=== PATIENT | female | born 1955 | race Asian ===

== ENCOUNTER 2020-10-10 07:09 | Inpatient (IN) | payer MEDICAID ==
[2020-10-07 11:49] LABS: BASOPHILS % (AUTO) 0.5 % (0-1); EOSINOPHILS % (AUTO) 0 % (0-6); LYMPHOCYTES # (AUTO) 1.4 X10'3 (1.1-4.8); LYMPHOCYTES % (AUTO) 23.7 % (21-51); MEAN CORPUSCULAR HEMOGLOBIN 30.3 PG (27.0-31.0); MEAN CORPUSCULAR HGB CONC 33.4 g/dL (33.0-36.5); MEAN CORPUSCULAR VOLUME 90.8 FL (78-98); MEAN PLATELET VOLUME 8.1 FL (7.4-10.4); MONOCYTES # (AUTO) 0.4 X10'3 (0-0.9); MONOCYTES % (AUTO) 6.1 % (2-12); NEUTROPHILS # (AUTO) 4.1 X10'3 (1.8-7.7); NEUTROPHILS % (AUTO) 69.7 % (42-75); PRE OP HEMATOCRIT 40.2 % (35.0-45.0); PRE OP HEMOGLOBIN 13.4 g/dL (12.0-16.0); PRE OP PLATELET COUNT 202 X10'3 (140-440); RED BLOOD COUNT 4.42 X10'6 (4.20-5.60); RED CELL DISTRIBUTION WIDTH 13.3 % (11.5-14.5)
[2020-10-07 12:03] LABS: PRE OP PROTIME 10.7 SECONDS (9.0-12.0)
[2020-10-07 12:09] LABS: ALBUMIN 4.1 G/DL (3.4-5.0); ALBUMIN/GLOBULIN RATIO 1.2 (1.1-1.5); ALKALINE PHOSPHATASE 78 IU/L (46-116); BLOOD UREA NITROGEN 10 MG/DL (7-18); BUN/CREATININE RATIO 14.7 (6.6-38.0); CALCIUM 8.8 MG/DL (8.5-10.1); CHLORIDE 107 MMOL/L (99-107); CREATININE 0.68 MG/DL (0.40-0.90); PRE OP ALT 26 U/L (30-65); PRE OP ANION GAP 9 (8-16); PRE OP AST 23 U/L (10-37); PRE OP BILIRUB, TOTAL 0.6 MG/DL (0.0-1.0); PRE OP GLUCOSE 88 MG/DL (70-104); PRE OP POTASSIUM 4.1 MMOL/L (3.4-5.1); PRE OP SODIUM 146 MMOL/L (135-145); TOTAL CARBON DIOXIDE 29.6 MMOL/L (24-32); TOTAL PROTEIN 7.4 G/DL (6.4-8.2); eGFR 87 ML/MIN
[~2020-10-10] VITALS: Ht 144.8 cm; Wt 45.6 kg
[2020-10-10] VITALS (21 sets, daily range): BP systolic 97–170; BP diastolic 49–88
[~2020-10-10 07:09] MED LIST: CHOL50004 PO; DULO60CA65 PO; QUET-1 PO; cefazolin/dext.iso 2gm/100ml IV ONE; famotidine 20mg tablet PO ONE; ringers solution, lacted 1,000 ML IV SCH
[2020-10-10] MEDS ORDERED: midazolam 1 mg/ML 2ml injection ONE ×2 (09:41→13:15)
[2020-10-10] MEDS ORDERED: fentaNYL/PF 50MCG/1 ML 2ML syringe ONE ×2 (09:41→13:00)
[2020-10-10] MEDS ORDERED: LIDOcaine 2% (20mg/ml) 5ml vial ONE (09:42)
[2020-10-10] MEDS ORDERED: propofol inj 20 ML IV ONE (09:42)
[2020-10-10] MEDS ORDERED: rocuronium 10mg/ml inj IV ONE ×2 (09:43→12:44)
[2020-10-10] MEDS ORDERED: ondansetron/PF 4mg/2ml inj ONE (09:44)
[2020-10-10] MEDS ORDERED: dexamethasone sod phosphate 4mg/ml inj. ONE (09:44)
[2020-10-10] MEDS ORDERED: LIDOcaine 1% (10mg/ml) 2ml vial ONE (09:50)
[2020-10-10] MEDS ORDERED: hydrALAZINE 20mg/ml inj. IV PRN (09:50)
[2020-10-10] MEDS ORDERED: morphine 2 MG/ML inj. syringe IV PRN (09:50)
[2020-10-10] MEDS ORDERED: ringers solution, lacted 1,000 ML IV SCH (09:50)
[2020-10-10] MEDS ORDERED: ondansetron/PF 4mg/2ml inj IV PRN ×2 (09:50→13:10)
[2020-10-10] MEDS ORDERED: labetalol 20mg/4ml (5mg/ml) syringe IV PRN (09:50)
[2020-10-10] MEDS ORDERED: fentaNYL/PF 50MCG/1 ML 2ML syringe IV PRN (09:50)
[2020-10-10] MEDS ORDERED: neostigmine methylsulfate 1 MG/ML 10ml vial ONE (10:50)
[2020-10-10] MEDS ORDERED: sevoflurane 250ml liquid IH ONE (10:50)
[2020-10-10] MEDS ORDERED: glycopyrrolate 0.2mg/ml inj ONE (10:50)
[2020-10-10] MEDS ORDERED: ePHEDrine 50MG/ML INJ. ONE (12:44)
[2020-10-10] MEDS ORDERED: sugammadex 200mg/2ml injection IV ONE (12:46)
[2020-10-10] MEDS ORDERED: BUPIVAcaine/PF 2.5mg/ml (0.25%) 10ml vial ONE (12:55)
[2020-10-10] MEDS ORDERED: naloxone 0.4 mg/ml inj ONE (13:08)
--- NOTE | 2020-10-10 13:20 | NUR ---
PT ARRIVED FROM OR VIA BED, MOANING AND THRASHING-PAINFUL, NOT FULLY AWAKE, LEFT GROIN CVL-BLEEDING AT SITE D/T PT MOVING SO MUCH-PRESSURE APPLIED, TRYING TO KEEP PT SAFE AND GET HER COMFORTABLE WITH PAIN MEDS, ART LINE TO RIGHT WRIST-INTACT, RIGHT CHEST DRSG-CDI, F/C IN PLACE-DRAINING YELLOW URINE, PIV TO LEFT HAND-D/CD CANNULA INTACT, PT SPEAKS ONLY MIEN-DIFFICULT TO COMMUNICATE WITH. VSS, O2 SAT 100% ON 10ML MASK.
[2020-10-10] MEDS: fentaNYL/PF 50MCG/1 ML 2ML syringe IV PRN ×3 (13:33→14:14)
[2020-10-10] MEDS: morphine 4 MG/ML inj SYRINge IV PRN ×3 (13:44→18:05)
--- NOTE | 2020-10-10 14:00 | NUR ---
PT STILL UNCOMFORTABLE HAS BEEN GIVEN MULTIPLE PAIN MEDS TO ASSIST WITH COMFORT, PT CRYING, MOANING, INTERMITTENT THRASHING-DIFFICULT TO KEEP LEFT LEG DOWN TO PROTECT GROIN SITE. SPOKE WITH DR. SMITH-ASHKAN TO CONTINUE PAIN MEDS TO GET PT COMFORTABLE. CHEST XRAY DONE PER DR. SILVA ORDER, PT NOTED TO HAVE SWELLING TO RIGHT SIDE OF NECK AFTER ATTEMPTED LINE PLACEMENT-AREA SOFT, SWELLING MARKED, DR PEÑA ASSESSED AREA AND XRAY REVIEWED-NO TRACHEAL DEVIATION NOTED, PT SATURATION 99% ON 3L RTS, NO SN/SX OF DIFFICULTY BREATHING
--- NOTE | 2020-10-10 15:45 | NUR ---
PT GIVEN 1 LAST DOSE OF FENTANYL FOR PAIN AT CHEST INCISION, ART LINE DC/D, GROIN CVL REDRESSED PER STERILE TECHNIQUE, NECK SWELLING APPEARS BETTER, STILL NO SN/SX OF RESP DISTRESS, 100% ON 2LTRS O2, CHEST DRSG-CDI.
--- NOTE | 2020-10-10 16:20 | NUR ---
PT VSS, PAIN BETTER CONTROLLED NOW, PT CALM AND RESTING QUIETLY, LEFT GROIN CVL-DRSG CDI, LR RUNNING VIA 1 LUMEN, RIGHT CHEST DSRG-CDI, F/C-DRAINING WELL, SPOKE WITH SISTER WHO WAS ABLE TO TRANSLATE TO PT AND REGARDING PT CURRENT CARE. REPORT CALLED TO JOSTIN RN-ALL QUESTIONS ANSWERED, TAKEN WITH BELONGINGS TO ROOM 3026B, HOOKED TO MONITORS, PRIMARY RN AT BEDSIDE TO RECEIVE PT.
[2020-10-10] MEDS: potassium CL 20mEq in D5-1/2NS 1,000 ML IV SCH ×2 (16:57→21:12)
[2020-10-10] MEDS: ceFAZolin inj. 1,000 MG in dextrose 5%-water 50ml 50 ML IV SCH (17:27)
--- NOTE | 2020-10-10 18:23 | NUR ---
Problems reprioritized. Patient report given, questions answered & plan of care reviewed with rudy LOCKE.
--- NOTE | 2020-10-10 18:23 | NUR ---
Patient in room PCU 3026. I have received report from JOSTIN LOCKE and had the opportunity to ask questions and assume patient care.
--- NOTE | 2020-10-10 18:44 | NUR ---
Problems reprioritized. Patient report given, questions answered & plan of care reviewed with Heidi LOCKE.
[2020-10-10] MEDS: HYDROcodone/acetaminophen 5mg/325mg tablet PO PRN (21:09)
[2020-10-10] MEDS: quetiapine 100mg tablet PO SCH (21:11)
[2020-10-11] MEDS: ceFAZolin inj. 1,000 MG in dextrose 5%-water 50ml 50 ML IV SCH ×2 (00:24→08:05)
[2020-10-11 02:00] VITALS: BP 91/46
[2020-10-11 06:00] VITALS: BP 103/60
--- NOTE | 2020-10-11 06:15 | NUR ---
Patient in room PCU 3026. I have received report from Heidi LOCKE and had the opportunity to ask questions and assume patient care.
[2020-10-11 06:19] LABS: BASOPHILS % (AUTO) 0.1 % (0-1); EOSINOPHILS % (AUTO) 0 % (0-6); HEMATOCRIT 31.4 % (35.0-45.0); HEMOGLOBIN 10.2 g/dl (12.0-16.0); LYMPHOCYTES # (AUTO) 1.2 X10'3 (1.1-4.8); LYMPHOCYTES % (AUTO) 7.3 % (21-51); MEAN CORPUSCULAR HEMOGLOBIN 29.9 PG (27.0-31.0); MEAN CORPUSCULAR HGB CONC 32.6 g/dL (33.0-36.5); MEAN CORPUSCULAR VOLUME 91.7 FL (78-98); MEAN PLATELET VOLUME 8.5 FL (7.4-10.4); MONOCYTES # (AUTO) 1.5 X10'3 (0-0.9); MONOCYTES % (AUTO) 9.5 % (2-12); NEUTROPHILS # (AUTO) 13.2 X10'3 (1.8-7.7); NEUTROPHILS % (AUTO) 83.1 % (42-75); PLATELET COUNT 165 X10'3 (140-440); RED BLOOD COUNT 3.42 X10'6 (4.20-5.60); RED CELL DISTRIBUTION WIDTH 13.5 % (11.5-14.5); WHITE BLOOD COUNT 15.9 X10'3 (4.5-11.0)
[2020-10-11 06:36] LABS: ALANINE AMINOTRANSFERASE 19 U/L (12-78); ALBUMIN 3.1 G/DL (3.4-5.0); ALBUMIN/GLOBULIN RATIO 1.1 (1.1-1.5); ALKALINE PHOSPHATASE 61 IU/L (46-116); ANION GAP 9 (8-16); ASPARTATE AMINO TRANSFERASE 29 U/L (10-37); BILIRUBIN,TOTAL 0.4 MG/DL (0.1-1.0); BLOOD UREA NITROGEN 10 MG/DL (7-18); BUN/CREATININE RATIO 12.5 (6.6-38.0); CALCIUM 7.8 MG/DL (8.5-10.1); CHLORIDE 107 MMOL/L (99-107); GLUCOSE 147 MG/DL (70-104); POTASSIUM 4.1 MMOL/L (3.5-5.1); SODIUM 143 MMOL/L (135-145); TOTAL CARBON DIOXIDE 27.3 MMOL/L (24-32); eGFR 72 ML/MIN
[2020-10-11] MEDS: potassium CL 20mEq in D5-1/2NS 1,000 ML IV SCH (06:58)
--- NOTE | 2020-10-11 06:59 | NUR ---
Problems reprioritized. Patient report given, questions answered & plan of care reviewed with JOSTIN LOCKE.
[2020-10-11] MEDS: duloxetine 30mg CAPSULE.DR PO SCH (08:05)
--- NOTE | 2020-10-11 08:17 | NUR ---
Pt's lopez cath removed. 10ml of saline removed from balloon tip. Pt tolerated well. 300ml of urine in collection container when removed.
[2020-10-11] MEDS: morphine 4 MG/ML inj SYRINge IV PRN ×2 (08:33→13:33)
--- NOTE | 2020-10-11 09:39 | NUR ---
Ambulated Pt 100ft, standby assistance, with no ambulatory devices. Pt was on room air, no complaints of SOB or discomfort. Pt's lowest sat on RA was 89%
[2020-10-11 11:00] VITALS: BP 113/58
--- NOTE | 2020-10-11 13:46 | NUR ---
Pt ambulated 300 ft on room air with no assistance. Pt did not complain of any SOB or sever discomfort. Pt's lowest sat on room air while ambulating was 90%.
[2020-10-11] MEDS ORDERED: HYDROcodone/acetaminophen 5mg/325mg tablet PO PRN (14:40)
[2020-10-11] MEDS: HYDROcodone/acetaminophen 5mg/325mg tablet PO PRN ×2 (16:44→21:35)
[2020-10-11 18:00] VITALS: BP 102/46
--- NOTE | 2020-10-11 18:13 | NUR ---
Problems reprioritized. Patient report given, questions answered & plan of care reviewed with Heidi LOCKE.
[2020-10-11] MEDS: quetiapine 100mg tablet PO SCH (21:24)
[2020-10-11 22:00] VITALS: BP 96/48
--- NOTE | 2020-10-11 23:29 | NUR ---
PAGER ID: [phone] MESSAGE: [phone], -GOLDGABRIEL RIVAS-NEEDS TELE RENEWAL ORDER- AT [phone] TODAY. PLEASE CALL JONAS [phone], THX
[2020-10-12] MEDS: HYDROcodone/acetaminophen 5mg/325mg tablet PO PRN (06:21)
--- NOTE | 2020-10-12 06:30 | NUR ---
Problems reprioritized. Patient report given, questions answered & plan of care reviewed with MACKENZIE MCPHERSON RN.
[2020-10-12 07:00] VITALS: BP 109/60
--- NOTE | 2020-10-12 07:42 | NUR ---
Patient in room PCU 3026. I have received report from JONAS LOCKE and had the opportunity to ask questions and assume patient care.
[2020-10-12] MEDS: duloxetine 30mg CAPSULE.DR PO SCH (09:06)
[2020-10-12] MEDS ORDERED: HYDR-3964 PO (10:10)
--- NOTE | 2020-10-12 11:30 | NUR ---
Pressure held to left groin site x15 minutes post CL DC'd. Specific instructions given to patient , S/O and lao speaking sister over the phone for patient to monitor site and return to ED with any issues ie: hematoma, redness, swelling, or discharge as educated to patient and family.
[2020-10-12 11:35] VITALS: BP 114/59
== END 2020-10-12 11:54 | disposition home or self-care (01) | DRG 121 ==
LOC: PAS IN 07:09 → PCU 3S 16:44
PROVIDERS: ADMIT Surgery; ATTEND Surgery
PROC: 05HY33Z Insertion of Infusion Device into Upper Vein, Percutaneous Approach (ICD-10-PCS; 2020-10-10)
PROC: 03HY32Z Insertion of Monitoring Device into Upper Artery, Percutaneous Approach (ICD-10-PCS; 2020-10-10)
PROC: B54MZZA Ultrasonography of Right Upper Extremity Veins, Guidance (ICD-10-PCS; 2020-10-10)
PROC: 0WBC0ZX Excision of Mediastinum, Open Approach, Diagnostic (ICD-10-PCS; principal; 2020-10-10 10:50)
DX: R22.2 Localized swelling, mass and lump, trunk (principal); J93.9 Pneumothorax, unspecified
CPT/HCPCS: 36415; 71045; 71046; 80053; 82948; 85025; 85610; 85730; 86885; 86900; 86901; 87081; A4215; A4618; A6258; A6449; A7000; C1758; C9399; G0378; J0690; J1100; J2001; J2250; J2270; J2310; J2405; J2704; J2710; J3010; J3480; J3490; J7040; J7060; J7120; U0003; U0005

== ENCOUNTER 2020-11-25 08:00 | Outpatient (CLI) | payer MEDICAID ==
[~2020-11-25] VITALS: Ht 144.8 cm; Wt 48.5 kg
[~2020-11-25 08:00] MED LIST changes: +HYDR-3964 PO; -cefazolin/dext.iso 2gm/100ml IV ONE; -famotidine 20mg tablet PO ONE; -ringers solution, lacted 1,000 ML IV SCH
[2020-11-25] MEDS ORDERED: PANT40TA54 PO (11:26)
[2020-11-25 12:08] LABS: BASOPHILS # (AUTO) 0.1 X10'3 (0-0.2); BASOPHILS % (AUTO) 1.2 % (0-1); EOSINOPHILS % (AUTO) 0.6 % (0-6); LYMPHOCYTES % (AUTO) 43.5 % (21-51); MEAN CORPUSCULAR HGB CONC 32.6 g/dL (33.0-36.5); MEAN CORPUSCULAR VOLUME 91.9 FL (78-98); MEAN PLATELET VOLUME 8.5 FL (7.4-10.4); MONOCYTES # (AUTO) 0.4 X10'3 (0-0.9); MONOCYTES % (AUTO) 9.1 % (2-12); NEUTROPHILS # (AUTO) 2.1 X10'3 (1.8-7.7); NEUTROPHILS % (AUTO) 45.6 % (42-75); PRE OP HEMATOCRIT 41.4 % (35.0-45.0); PRE OP HEMOGLOBIN 13.5 g/dL (12.0-16.0); PRE OP PLATELET COUNT 203 X10'3 (140-440); RED BLOOD COUNT 4.51 X10'6 (4.20-5.60); RED CELL DISTRIBUTION WIDTH 13.7 % (11.5-14.5)
[2020-11-25 12:10] LABS: CLARITY,URINE SLIGHTLY CLOUDY (Clear); COLOR,URINE YELLOW (Yellow); PROTEIN,URINE NEGATIVE (Neg); UA COLLECTION TYPE CLN CATCH MIDSTREAM
[2020-11-25 12:11] LABS: GLUCOSE, URINE NEGATIVE (Neg); KETONES,URINE NEGATIVE (Neg); LEUKOCYTE ESTERASE ,URINE NEGATIVE (Neg); NITRITES, URINE NEGATIVE (Neg); OCCULT BLOOD,URINE TRACE-INTACT (Neg); UROBILINOGEN,URINE 0.2 E.U/dL (0.2-1.0)
[2020-11-25 12:20] LABS: ALBUMIN/GLOBULIN RATIO 1.2 (1.1-1.5); ALKALINE PHOSPHATASE 72 IU/L (46-116); BLOOD UREA NITROGEN 11 MG/DL (7-18); BUN/CREATININE RATIO 15.5 (6.6-38.0); CALCIUM 8.8 MG/DL (8.5-10.1); CHLORIDE 109 MMOL/L (99-107); CREATININE 0.71 MG/DL (0.40-0.90); PRE OP ALT 19 U/L (30-65); PRE OP ANION GAP 9 (8-16); PRE OP AST 14 U/L (10-37); PRE OP BILIRUB, TOTAL 0.4 MG/DL (0.0-1.0); PRE OP GLUCOSE 91 MG/DL (70-104); PRE OP POTASSIUM 3.6 MMOL/L (3.4-5.1); PRE OP SODIUM 148 MMOL/L (135-145); TOTAL CARBON DIOXIDE 29.8 MMOL/L (24-32); TOTAL PROTEIN 7.4 G/DL (6.4-8.2); eGFR 83 ML/MIN
[2020-11-25 12:26] LABS: BACTERIA,URINE NONE SEEN /HPF (Neg); MUCUS STRANDS MODERATE /LPF (Neg); RBC,URINE 0-2 /HPF (0-2); SQUAMOUS EPITHELIAL CELL,UR FEW /LPF (FEW); WBC,URINE 0-4 /HPF (0-4)
[2020-11-25 12:30] LABS: PRE OP PROTIME 10.5 SECONDS (9.0-12.0)
[2020-11-28] MEDS ORDERED: QUET300T72 PO (11:25)
[2020-11-28] MEDS ORDERED: CHOL5000 PO (11:25)
[2020-12-01] MEDS ORDERED: ringers solution, lacted 1,000 ML IV SCH (05:00)
[2020-12-01] MEDS ORDERED: famotidine 20mg tablet PO ONE (05:30)
[2020-12-01] MEDS ORDERED: cefazolin/dext.iso 2gm/50ml 50 ML IV ONE (05:30)
== END 2020-11-25 23:00 | disposition home or self-care (01) ==
LOC: LAB 08:00 → UNDOADMIN 12-01 06:06 → PAS IN 12-01 06:06 → UNDODISIN 12-01 07:00 → EDSTATUS 12-01 08:00
PROVIDERS: ATTEND Surgery
DX: Z01.812 Encounter for preprocedural laboratory examination (principal); M85.80 Other specified disorders of bone density and structure, unspecified site; Z20.822 Contact with and (suspected) exposure to COVID-19
CPT/HCPCS: 36415; 71046; 80053; 81001; 85025; 85610; 85730; 86885; 86900; 86901; 87081; 93005; U0003; U0005; J7120

== ENCOUNTER 2020-12-09 05:59 | Inpatient (IN) | payer MEDICAID ==
[2020-12-09] VITALS (21 sets, daily range): BP systolic 90–159; BP diastolic 52–96
[~2020-12-09] VITALS: Ht 149.9 cm; Wt 43.5 kg
[~2020-12-09 05:59] MED LIST changes: +CHOL5000 PO; -CHOL50004 PO; -HYDR-3964 PO; +PANT40TA54 PO; -QUET-1 PO; +QUET300T72 PO; +ceFAZolin 2gm in dextrose, iso 50 ML IV ONE; +famotidine 20mg tablet PO ONE; +ringers solution, lacted 1,000 ML IV SCH
[2020-12-09 06:53] LABS: BASOPHILS % (AUTO) 0.9 % (0-1); EOSINOPHILS # (AUTO) 0.1 X10'3 (0-0.9); EOSINOPHILS % (AUTO) 2.6 % (0-6); LYMPHOCYTES # (AUTO) 1.8 X10'3 (1.1-4.8); LYMPHOCYTES % (AUTO) 33.3 % (21-51); MEAN CORPUSCULAR HEMOGLOBIN 30.4 PG (27.0-31.0); MEAN CORPUSCULAR HGB CONC 33.7 g/dL (33.0-36.5); MEAN CORPUSCULAR VOLUME 90.2 FL (78-98); MEAN PLATELET VOLUME 8.3 FL (7.4-10.4); MONOCYTES # (AUTO) 0.6 X10'3 (0-0.9); MONOCYTES % (AUTO) 11.9 % (2-12); NEUTROPHILS # (AUTO) 2.7 X10'3 (1.8-7.7); NEUTROPHILS % (AUTO) 51.3 % (42-75); PRE OP HEMATOCRIT 41.4 % (35.0-45.0); PRE OP PLATELET COUNT 184 X10'3 (140-440); RED BLOOD COUNT 4.59 X10'6 (4.20-5.60); RED CELL DISTRIBUTION WIDTH 13.5 % (11.5-14.5)
[2020-12-09 07:15] LABS: ALANINE AMINOTRANSFERASE 23 U/L (12-78); ALBUMIN 3.8 G/DL (3.4-5.0); ALBUMIN/GLOBULIN RATIO 1.2 (1.1-1.5); ALKALINE PHOSPHATASE 71 IU/L (46-116); ANION GAP 8 (8-16); ASPARTATE AMINO TRANSFERASE 19 U/L (10-37); BILIRUBIN,TOTAL 0.3 MG/DL (0.1-1.0); BLOOD UREA NITROGEN 15 MG/DL (7-18); BUN/CREATININE RATIO 17.9 (6.6-38.0); CALCIUM 8.7 MG/DL (8.5-10.1); CHLORIDE 109 MMOL/L (99-107); CREATININE 0.84 MG/DL (0.40-0.90); GLUCOSE 101 MG/DL (70-104); SODIUM 145 MMOL/L (135-145); TOTAL CARBON DIOXIDE 27.6 MMOL/L (24-32); eGFR 68 ML/MIN
[2020-12-09 07:23] LABS: PRE OP PARTIAL THROMB. TIME 30 SECONDS (22-32)
[2020-12-09] MEDS ORDERED: glycopyrrolate 0.2mg/ml inj ONE (08:10)
[2020-12-09] MEDS ORDERED: neostigmine methylsulfate 1 MG/ML 10ml vial ONE (08:10)
[2020-12-09] MEDS ORDERED: sevoflurane 250ml liquid IH ONE (08:10)
[2020-12-09] MEDS ORDERED: fentaNYL /PF 50mcg/ml 5ml ampule ONE (08:26)
[2020-12-09] MEDS ORDERED: midazolam 1 mg/ML 2ml injection ONE (08:26)
[2020-12-09] MEDS ORDERED: propofol inj 20 ML IV ONE (08:28)
[2020-12-09] MEDS ORDERED: LIDOcaine 2% (20mg/ml) 5ml vial ONE (08:28)
[2020-12-09] MEDS ORDERED: rocuronium 10mg/ml inj IV ONE (09:11)
[2020-12-09] MEDS ORDERED: heparin 10,000 units/1 ML INJ ONE (09:24)
[2020-12-09] MEDS ORDERED: ringers solution, lacted 1,000 ML IV SCH (09:40)
[2020-12-09] MEDS ORDERED: meperidine/PF 25mg/ml syringe IV PRN ×3 (09:40)
[2020-12-09] MEDS ORDERED: ondansetron/PF 4mg/2ml inj IV PRN ×2 (09:40→11:30)
[2020-12-09] MEDS ORDERED: morphine 4 MG/ML inj SYRINge IV PRN ×3 (09:40→11:30)
[2020-12-09] MEDS ORDERED: morphine 2 MG/ML inj. syringe IV PRN (09:40)
[2020-12-09] MEDS ORDERED: proCHLORperazine 10 MG/2 ml inj IV PRN (09:40)
[2020-12-09] MEDS ORDERED: ondansetron/PF 4mg/2ml inj ONE (09:46)
[2020-12-09] MEDS ORDERED: dexamethasone sod phosphate 4mg/ml inj. ONE (09:46)
[2020-12-09] MEDS ORDERED: acetaminophen 1,000mg/100ml IV 100 ML IV ONE (10:23)
[2020-12-09] MEDS ORDERED: albumin (Human) 5% 250ml 250 ML IV ONE ×3 (10:42→21:45)
[2020-12-09] MEDS ORDERED: BUPIVAcaine/PF 2.5 mg/ml (0.25%) 30ml vial ONE (10:43)
[2020-12-09] MEDS ORDERED: esmolol inj. 10 ML IV ONE (10:44)
[2020-12-09] MEDS ORDERED: morphine 4 MG/ML inj SYRINge ONE (10:44)
[2020-12-09] MEDS ORDERED: ketorolac trometh. 30mg/ml inj. ONE (11:09)
[2020-12-09] MEDS ORDERED: metoclopramide 5 mg/ml inj IV PRN (11:30)
[2020-12-09] MEDS ORDERED: naloxone 0.4 mg/ml inj IV PRN (11:30)
[2020-12-09] MEDS ORDERED: CADD PCA waste documentation MC PRN (11:30)
[2020-12-09] MEDS ORDERED: albuterol 2.5 MG/3 ML nebule NEB PRN (11:30)
--- NOTE | 2020-12-09 11:32 | NUR ---
ASSUME CARE PT AROUSABLE TO NAME VSS NO DISTRESS. O2 FM 10L SAT 99, TLC TO RIGHT NECK, PIV 20G TO LEFT ARM, CT TO MEDIAL AREA WITH SCANT AMT DRAINAGE, CT TO SUCTION DRAINING [place] BLOOD HENRIQUEZ CATH TO GRAVITY DRAINING CLEAR YELLOW URINE. CONT TO MONITOR Addendum: 12/09/20 at 1224 by María Elena Jc RN Amended: Links added.
--- NOTE | 2020-12-09 11:32 | NUR ---
RECIEVE REPORT ASSUME CARE PT AROUSABLE TO NAME VSS NO DISTRSS
[2020-12-09 11:56] LABS: ABG BASE EXCESS -2.5 mmol/L (-2.0-2.0); ABG HCO3 23.4 mmol/L (22.0-26.0); ABG OXYGEN SATURATION 96.5 % (94-97); ABG PCO2 (T) 44.7 mmHg (32.0-45.0); ABG PO2 (T) 96.4 mmHg (75.0-100.0); FCOHb 0.3 % (0.0-3.9); FLOW 10 L/min; FMetHb 0.4 % (0.0-1.5); FO2Hb 95.8 % (94-97); PATIENT TEMPERATURE 37.1; TOTAL HEMOGLOBIN 11.2 G/dl (12.0-16.0)
--- NOTE | 2020-12-09 12:25 | NUR ---
PT MOANING RESTLESS UNABLE TO STATE PAIN LEVEL, NOTED BODY QUE PT EXHIBITS S/S OF PAIN MED WITH DEMEROL 25MG NO OTHER CHANGES Addendum: 12/09/20 at 1230 by María Elena Jc RN Amended: Links added.
--- NOTE | 2020-12-09 12:30 | NUR ---
PT MORE COMFORTABLE VSS NO DISTRESS CONT TO MONITOR Addendum: 12/09/20 at 1231 by María Elena Jc RN Amended: Links added.
--- NOTE | 2020-12-09 12:50 | NUR ---
PT AWAKE VSS NO DISTRESS MEETS CRITERIA TO DC TO ICU REPORT CALLED TRANSPORTED VIA BED ON MONITOR. Addendum: 12/09/20 at 1324 by María Elena Jc RN Amended: Links added.
--- NOTE | 2020-12-09 13:37 | NUR ---
Received pt. from after receiving report from María Elena Pacheco RN. Pt. hooked up to bedside monitor. Chest tube hooked up to suction. Art and CVP lines zeroed. Heart pillow obtained for chest splinting. 2 RN skin check done. Foam dressing applied to sacrum. VSS. Pillows under all exts. Spouse Jack at bedside. Will continue to monitor.
[2020-12-09] MEDS: morphine 4 MG/ML inj SYRINge IV PRN (13:45)
[2020-12-09] MEDS: potassium Cl 20mEq in D5-NS 1,000 ML IV SCH ×2 (14:10→23:19)
--- NOTE | 2020-12-09 14:55 | NUR ---
Pt. tolerated sips of warm (per her request) water.
[2020-12-09] MEDS: ceFAZolin inj. 1,000 MG in dextrose 5%-water 50ml 50 ML IV SCH ×2 (15:21→23:22)
[2020-12-09 16:31] LABS: ISTAT CREATININE 0.7 mg/dL (0.6-1.1); ISTAT K 3.6 mmol/L (3.5-5.1)
[2020-12-09 16:32] LABS: ISTAT HGB 10.9 g/dl (12.0-16.0); ISTAT IONIZED CALCIUM 1.1 mmol/L (1.03-1.32); POC BUN/CREATININE RATIO 17.1 (6.6-38.0)
[2020-12-09] MEDS: gabapentin 300mg capsule PO SCH (19:41)
[2020-12-09] MEDS: docusate sod 100mg capsule PO SCH (19:42)
[2020-12-09] MEDS ORDERED: dextrose 50%-water 50ml dispensing syringe IV PRN ×2 (21:50)
[2020-12-09] MEDS ORDERED: dextrose ORAL solution 15 GM/59 ML bottle PO PRN ×2 (21:50)
[2020-12-09] MEDS ORDERED: insulin Lispro (HumaLOG) vial - multi-dose SQ SCH (21:50)
[2020-12-09] MEDS ORDERED: glucagon, human recombinant 1mg kit SUBCUT PRN (21:50)
[2020-12-09 22:39] LABS: HEMOGLOBIN A1C 5.7 % (4.5-6.2)
[2020-12-10] VITALS (24 sets, daily range): BP systolic 103–149; BP diastolic 54–86
[2020-12-10 04:35] LABS: BASOPHILS % (AUTO) 0.3 % (0-1); EOSINOPHILS % (AUTO) 0 % (0-6); LYMPHOCYTES # (AUTO) 0.9 X10'3 (1.1-4.8); MEAN CORPUSCULAR HEMOGLOBIN 30.3 PG (27.0-31.0); MEAN CORPUSCULAR HGB CONC 33.5 g/dL (33.0-36.5); MEAN CORPUSCULAR VOLUME 90.7 FL (78-98); MEAN PLATELET VOLUME 8.6 FL (7.4-10.4); MONOCYTES % (AUTO) 10.4 % (2-12); NEUTROPHILS # (AUTO) 7.8 X10'3 (1.8-7.7); NEUTROPHILS % (AUTO) 80.3 % (42-75); PLATELET COUNT 143 X10'3 (140-440); RED BLOOD COUNT 2.65 X10'6 (4.20-5.60); RED CELL DISTRIBUTION WIDTH 13.4 % (11.5-14.5); WHITE BLOOD COUNT 9.7 X10'3 (4.5-11.0)
[2020-12-10 04:48] LABS: ALANINE AMINOTRANSFERASE 14 U/L (12-78); ALBUMIN 3.4 G/DL (3.4-5.0); ALBUMIN/GLOBULIN RATIO 1.5 (1.1-1.5); ALKALINE PHOSPHATASE 36 IU/L (46-116); ANION GAP 9 (8-16); ASPARTATE AMINO TRANSFERASE 13 U/L (10-37); BILIRUBIN,TOTAL 0.3 MG/DL (0.1-1.0); BLOOD UREA NITROGEN 11 MG/DL (7-18); BUN/CREATININE RATIO 15.7 (6.6-38.0); CALCIUM 7.5 MG/DL (8.5-10.1); CHLORIDE 112 MMOL/L (99-107); GLUCOSE 130 MG/DL (70-104); MAGNESIUM 1.8 MG/DL (1.5-2.4); PHOSPHORUS 2.9 MG/DL (2.3-4.5); POTASSIUM 4.2 MMOL/L (3.5-5.1); SODIUM 146 MMOL/L (135-145); TOTAL PROTEIN 5.7 G/DL (6.4-8.2); eGFR 84 ML/MIN
[2020-12-10] MEDS: potassium Cl 20mEq in D5-NS 1,000 ML IV SCH (05:21)
[2020-12-10] MEDS: gabapentin 300mg capsule PO SCH ×2 (07:16→19:57)
[2020-12-10] MEDS: HYDROcodone/acetaminophen 10/325mg tab PO PRN ×3 (07:16→16:56)
[2020-12-10] MEDS: docusate sod 100mg capsule PO SCH ×2 (07:16→19:57)
[2020-12-10] MEDS ORDERED: bumetanide 0.25mg/ml 4ml vial IV SCH (10:00)
[2020-12-10] MEDS: insulin glargine (Lantus) pen - multi-dose SQ SCH (21:00)
[2020-12-11] VITALS (19 sets, daily range): BP systolic 96–148; BP diastolic 52–76
[2020-12-11 03:29] LABS: BASOPHILS % (AUTO) 0.3 % (0-1); EOSINOPHILS % (AUTO) 0.4 % (0-6); HEMATOCRIT 23.2 % (35.0-45.0); HEMOGLOBIN 7.7 g/dl (12.0-16.0); LYMPHOCYTES # (AUTO) 1.7 X10'3 (1.1-4.8); MEAN CORPUSCULAR HEMOGLOBIN 30.3 PG (27.0-31.0); MEAN CORPUSCULAR HGB CONC 33.1 g/dL (33.0-36.5); MEAN CORPUSCULAR VOLUME 91.3 FL (78-98); MEAN PLATELET VOLUME 8.9 FL (7.4-10.4); MONOCYTES # (AUTO) 1.1 X10'3 (0-0.9); MONOCYTES % (AUTO) 12.3 % (2-12); NEUTROPHILS # (AUTO) 5.8 X10'3 (1.8-7.7); PLATELET COUNT 134 X10'3 (140-440); RED BLOOD COUNT 2.54 X10'6 (4.20-5.60); RED CELL DISTRIBUTION WIDTH 13.7 % (11.5-14.5); WHITE BLOOD COUNT 8.6 X10'3 (4.5-11.0)
[2020-12-11 03:38] LABS: ALANINE AMINOTRANSFERASE 16 U/L (12-78); ALBUMIN 2.8 G/DL (3.4-5.0); ALKALINE PHOSPHATASE 41 IU/L (46-116); ANION GAP 5 (8-16); ASPARTATE AMINO TRANSFERASE 16 U/L (10-37); BILIRUBIN,TOTAL 0.3 MG/DL (0.1-1.0); BLOOD UREA NITROGEN 6 MG/DL (7-18); BUN/CREATININE RATIO 9.8 (6.6-38.0); CALCIUM 7.8 MG/DL (8.5-10.1); CHLORIDE 112 MMOL/L (99-107); CREATININE 0.61 MG/DL (0.40-0.90); GLUCOSE 119 MG/DL (70-104); MAGNESIUM 1.9 MG/DL (1.5-2.4); POTASSIUM 3.9 MMOL/L (3.5-5.1); SODIUM 145 MMOL/L (135-145); TOTAL CARBON DIOXIDE 28.3 MMOL/L (24-32); TOTAL PROTEIN 5.6 G/DL (6.4-8.2); eGFR > 90 ML/MIN
[2020-12-11] MEDS: HYDROcodone/acetaminophen 10/325mg tab PO PRN ×3 (03:50→23:48)
[2020-12-11] MEDS: potassium Cl 20mEq in D5-NS 1,000 ML IV SCH ×3 (06:35→19:44)
[2020-12-11] MEDS: docusate sod 100mg capsule PO SCH ×2 (08:32→19:46)
[2020-12-11] MEDS: gabapentin 300mg capsule PO SCH (08:32)
--- NOTE | 2020-12-11 12:15 | NUR ---
Initial: Pt s/p sternectomy w/ thymoma resection. Currently on clear liquid diet w/ no PO documented. Recommend advancing to Regular diet as tolerated if MD agreeable. Noted pt non Kazakh speaking, placed high protein diet education w/ RD contact info in chart. Receiving KCl/NS/D5 at 80ml/hr providing 326kcals/day. No BM documented though receiving routine colace. Limited nutrition interventions at this time given diet order, will continue to monitor. Recs: 1. Advance to Regular diet as tolerated if MD agreeable 2. Monitor need for ONS upon diet advancement 3. Bowel care per rx 4. Weekly wts Addendum: 12/11/20 at [address] Amended: Links added.
--- NOTE | 2020-12-11 17:34 | NUR ---
Problems reprioritized. Patient report given, questions answered & plan of care reviewed with Riccardo LOCKE.
--- NOTE | 2020-12-11 17:45 | NUR ---
pt arrived from ICU via bed. amb in to room to new bed. steady with standby, no sob, ra, into bed with min assist , sternal precautions, IV left arm intact, sternal incision cdi, medial drain site cdi, peripheral pulses 2+ , warm extremeties, cap refuill quick x4. limited danish, good appetite, swallows safely, set up at 90 for meal which came from icu. deny pain on arrival and said " im cold' , added warm blanketsx2
--- NOTE | 2020-12-11 18:00 | NUR ---
tele 21 sr-st
--- NOTE | 2020-12-11 18:27 | NUR ---
Problems reprioritized. Patient report given, questions answered & plan of care reviewed with juana LOCKE.
--- NOTE | 2020-12-11 19:03 | NUR ---
Patient in room PCU 3028. I have received report from Riccardo LOCKE and had the opportunity to ask questions and assume patient care.
[2020-12-11] MEDS: insulin glargine (Lantus) pen - multi-dose SQ SCH (21:00)
[2020-12-12 02:00] VITALS: BP 129/76
[2020-12-12] MEDS: HYDROcodone/acetaminophen 10/325mg tab PO PRN ×3 (05:29→17:45)
[2020-12-12 06:00] VITALS: BP 131/68
[2020-12-12 06:09] LABS: BASOPHILS % (AUTO) 0.4 % (0-1); EOSINOPHILS # (AUTO) 0.1 X10'3 (0-0.9); EOSINOPHILS % (AUTO) 1.8 % (0-6); HEMATOCRIT 23.7 % (35.0-45.0); LYMPHOCYTES % (AUTO) 26.7 % (21-51); MEAN CORPUSCULAR HEMOGLOBIN 30.9 PG (27.0-31.0); MEAN CORPUSCULAR HGB CONC 33.7 g/dL (33.0-36.5); MEAN CORPUSCULAR VOLUME 91.7 FL (78-98); MEAN PLATELET VOLUME 8.6 FL (7.4-10.4); MONOCYTES # (AUTO) 0.9 X10'3 (0-0.9); MONOCYTES % (AUTO) 12.5 % (2-12); NEUTROPHILS # (AUTO) 4.5 X10'3 (1.8-7.7); NEUTROPHILS % (AUTO) 58.6 % (42-75); PLATELET COUNT 154 X10'3 (140-440); RED BLOOD COUNT 2.58 X10'6 (4.20-5.60); RED CELL DISTRIBUTION WIDTH 13.4 % (11.5-14.5); WHITE BLOOD COUNT 7.6 X10'3 (4.5-11.0)
--- NOTE | 2020-12-12 06:20 | NUR ---
Problems reprioritized. Patient report given, questions answered & plan of care reviewed with Ragini LOCKE.
[2020-12-12 06:25] LABS: ALANINE AMINOTRANSFERASE 16 U/L (12-78); ALBUMIN 2.9 G/DL (3.4-5.0); ALKALINE PHOSPHATASE 46 IU/L (46-116); ANION GAP 3 (8-16); ASPARTATE AMINO TRANSFERASE 16 U/L (10-37); BILIRUBIN,TOTAL 0.2 MG/DL (0.1-1.0); BLOOD UREA NITROGEN 5 MG/DL (7-18); BUN/CREATININE RATIO 7.6 (6.6-38.0); CALCIUM 8.2 MG/DL (8.5-10.1); CHLORIDE 109 MMOL/L (99-107); CREATININE 0.66 MG/DL (0.40-0.90); GLUCOSE 120 MG/DL (70-104); MAGNESIUM 1.9 MG/DL (1.5-2.4); PHOSPHORUS 3.7 MG/DL (2.3-4.5); POTASSIUM 3.6 MMOL/L (3.5-5.1); SODIUM 140 MMOL/L (135-145); TOTAL CARBON DIOXIDE 28.1 MMOL/L (24-32); TOTAL PROTEIN 5.8 G/DL (6.4-8.2); eGFR 90 ML/MIN
--- NOTE | 2020-12-12 06:25 | NUR ---
Patient in room PCU 3028. I have received report from CHUCKY ELMORE, and had the opportunity to ask questions and assume patient care.
[2020-12-12] MEDS: docusate sod 100mg capsule PO SCH ×2 (07:11→19:15)
[2020-12-12] MEDS: potassium Cl 20mEq in D5-NS 1,000 ML IV SCH (08:43)
[2020-12-12 11:00] VITALS: BP 119/62
[2020-12-12] MEDS ORDERED: ondansetron 4mg rapidly disintigrating tab PO PRN (12:50)
[2020-12-12 15:00] VITALS: BP 136/72
[2020-12-12 18:00] VITALS: BP 130/72
--- NOTE | 2020-12-12 18:25 | NUR ---
Problems reprioritized. Patient report given, questions answered & plan of care reviewed with CHUCKY MCDANIEL.
[2020-12-12] MEDS: morphine 4 MG/ML inj SYRINge IV PRN (19:16)
[2020-12-12] MEDS: insulin glargine (Lantus) pen - multi-dose SQ SCH (21:00)
[2020-12-12 22:00] VITALS: BP 141/85
[2020-12-13 02:00] VITALS: BP 132/81
[2020-12-13 06:00] VITALS: BP 137/78
--- NOTE | 2020-12-13 06:54 | NUR ---
Patient in room PCU 3028. I have received report from Heidi LOCKE and had the opportunity to ask questions and assume patient care.
[2020-12-13 07:15] LABS: BASOPHILS % (AUTO) 0.5 % (0-1); EOSINOPHILS # (AUTO) 0.1 X10'3 (0-0.9); EOSINOPHILS % (AUTO) 1.8 % (0-6); HEMATOCRIT 25.2 % (35.0-45.0); HEMOGLOBIN 8.5 g/dl (12.0-16.0); LYMPHOCYTES # (AUTO) 1.5 X10'3 (1.1-4.8); LYMPHOCYTES % (AUTO) 23.9 % (21-51); MEAN CORPUSCULAR HEMOGLOBIN 30.4 PG (27.0-31.0); MEAN CORPUSCULAR HGB CONC 33.6 g/dL (33.0-36.5); MEAN CORPUSCULAR VOLUME 90.5 FL (78-98); MEAN PLATELET VOLUME 8.5 FL (7.4-10.4); MONOCYTES # (AUTO) 0.4 X10'3 (0-0.9); MONOCYTES % (AUTO) 7.2 % (2-12); NEUTROPHILS # (AUTO) 4.2 X10'3 (1.8-7.7); NEUTROPHILS % (AUTO) 66.6 % (42-75); PLATELET COUNT 195 X10'3 (140-440); RED BLOOD COUNT 2.78 X10'6 (4.20-5.60); RED CELL DISTRIBUTION WIDTH 12.9 % (11.5-14.5); WHITE BLOOD COUNT 6.3 X10'3 (4.5-11.0)
[2020-12-13 07:46] LABS: ALANINE AMINOTRANSFERASE 15 U/L (12-78); ALBUMIN 3.2 G/DL (3.4-5.0); ALKALINE PHOSPHATASE 53 IU/L (46-116); ANION GAP 7 (8-16); ASPARTATE AMINO TRANSFERASE 16 U/L (10-37); BILIRUBIN,TOTAL 0.4 MG/DL (0.1-1.0); BLOOD UREA NITROGEN 6 MG/DL (7-18); BUN/CREATININE RATIO 10.7 (6.6-38.0); CALCIUM 8.9 MG/DL (8.5-10.1); CHLORIDE 106 MMOL/L (99-107); CREATININE 0.56 MG/DL (0.40-0.90); GLUCOSE 119 MG/DL (70-104); PHOSPHORUS 5.1 MG/DL (2.3-4.5); POTASSIUM 3.7 MMOL/L (3.5-5.1); SODIUM 143 MMOL/L (135-145); TOTAL CARBON DIOXIDE 30.4 MMOL/L (24-32); TOTAL PROTEIN 6.4 G/DL (6.4-8.2); eGFR > 90 ML/MIN
[2020-12-13] MEDS: docusate sod 100mg capsule PO SCH ×2 (09:03→19:35)
[2020-12-13 11:00] VITALS: BP 135/66
[2020-12-13 15:00] VITALS: BP 122/64
[2020-12-13 18:00] VITALS: BP 127/76
--- NOTE | 2020-12-13 18:14 | NUR ---
Problems reprioritized. Patient report given, questions answered & plan of care reviewed with Heidi LOCKE. Patient stable at transfer of care.
[2020-12-13] MEDS: HYDROcodone/acetaminophen 10/325mg tab PO PRN (19:34)
[2020-12-13] MEDS: insulin glargine (Lantus) pen - multi-dose SQ SCH (21:00)
[2020-12-13 22:00] VITALS: BP 157/64
[2020-12-14 02:00] VITALS: BP 123/75
[2020-12-14 05:55] LABS: BASOPHILS % (AUTO) 0.6 % (0-1); EOSINOPHILS # (AUTO) 0.1 X10'3 (0-0.9); EOSINOPHILS % (AUTO) 2.5 % (0-6); HEMATOCRIT 23.3 % (35.0-45.0); LYMPHOCYTES # (AUTO) 1.4 X10'3 (1.1-4.8); LYMPHOCYTES % (AUTO) 27.8 % (21-51); MEAN CORPUSCULAR HEMOGLOBIN 30.8 PG (27.0-31.0); MEAN CORPUSCULAR HGB CONC 34.5 g/dL (33.0-36.5); MEAN CORPUSCULAR VOLUME 89.4 FL (78-98); MEAN PLATELET VOLUME 8.3 FL (7.4-10.4); MONOCYTES # (AUTO) 0.6 X10'3 (0-0.9); MONOCYTES % (AUTO) 11.7 % (2-12); NEUTROPHILS % (AUTO) 57.4 % (42-75); PLATELET COUNT 225 X10'3 (140-440); RED CELL DISTRIBUTION WIDTH 12.8 % (11.5-14.5); WHITE BLOOD COUNT 5.1 X10'3 (4.5-11.0)
[2020-12-14 06:00] VITALS: BP 119/75
[2020-12-14 06:14] LABS: ALANINE AMINOTRANSFERASE 18 U/L (12-78); ALBUMIN 3.2 G/DL (3.4-5.0); ALKALINE PHOSPHATASE 48 IU/L (46-116); ANION GAP 5 (8-16); ASPARTATE AMINO TRANSFERASE 16 U/L (10-37); BILIRUBIN,TOTAL 0.3 MG/DL (0.1-1.0); BLOOD UREA NITROGEN 9 MG/DL (7-18); BUN/CREATININE RATIO 14.8 (6.6-38.0); CALCIUM 8.7 MG/DL (8.5-10.1); CHLORIDE 105 MMOL/L (99-107); CREATININE 0.61 MG/DL (0.40-0.90); GLUCOSE 122 MG/DL (70-104); MAGNESIUM 2.1 MG/DL (1.5-2.4); PHOSPHORUS 4.2 MG/DL (2.3-4.5); SODIUM 142 MMOL/L (135-145); TOTAL CARBON DIOXIDE 31.8 MMOL/L (24-32); TOTAL PROTEIN 6.5 G/DL (6.4-8.2); eGFR > 90 ML/MIN
--- NOTE | 2020-12-14 06:41 | NUR ---
Problems reprioritized. Patient report given, questions answered & plan of care reviewed with MACKENZIE MCPHERSON RN.
--- NOTE | 2020-12-14 07:00 | NUR ---
Patient in room PCU 3028. I have received report from CHUCKY MANN, and had the opportunity to ask questions and assume patient care.
[2020-12-14] MEDS: docusate sod 100mg capsule PO SCH ×2 (08:00→20:07)
[2020-12-14] MEDS: pantoprazole 40mg Tablet.DR PO SCH (09:09)
[2020-12-14] MEDS: duloxetine 30mg CAPSULE.DR PO SCH (09:09)
[2020-12-14 11:00] VITALS: BP 141/97
--- NOTE | 2020-12-14 13:51 | NUR ---
Reassessment: Pt advanced to Regular diet 12/11 though no PO intake documented. D/w RN who states pt is eating moderately well, had about 50% of breakfast today and pt family also brings in food. Pt likely meeting nutrient needs w/ addition of outside food. RN mentioned that pt does not like milk and will not drink it, discussed this w/ dietary. LBM 12/13 receiving routine colace. No nutrition intervention implemented at this time, will continue to monitor. Recs: 1. Continue Regular diet as tolerated 2. Bowel care per rx 3. Weekly wts Addendum: 12/14/20 at [address] Amended: Links added.
[2020-12-14 18:00] VITALS: BP 123/75
--- NOTE | 2020-12-14 18:30 | NUR ---
Patient in room PCU 3028. I have received report from CHUCKY Eid and had the opportunity to ask questions and assume patient care. Patient sleeping comfortably on hospital bed, I will continue to monitor.
[2020-12-14] MEDS: quetiapine fumarate ER 300mg tablet PO SCH (20:07)
[2020-12-14] MEDS: HYDROcodone/acetaminophen 10/325mg tab PO PRN (20:07)
[2020-12-14] MEDS: insulin glargine (Lantus) pen - multi-dose SQ SCH (20:08)
[2020-12-15 06:00] VITALS: BP 105/64
--- NOTE | 2020-12-15 06:08 | NUR ---
Problems reprioritized. Patient report given, questions answered & plan of care reviewed with CHUCKY Eid.
--- NOTE | 2020-12-15 06:56 | NUR ---
Patient in room PCU 3028. I have received report from CHUCKY HUERTA, and had the opportunity to ask questions and assume patient care.
[2020-12-15] MEDS ORDERED: ergocalciferol (vit D2) capsule 50,000 UNITS (1,250mcg) CAPSULE PO SCH (08:00)
[2020-12-15] MEDS: duloxetine 30mg CAPSULE.DR PO SCH (08:32)
[2020-12-15] MEDS: docusate sod 100mg capsule PO SCH ×2 (08:32→20:35)
[2020-12-15] MEDS: pantoprazole 40mg Tablet.DR PO SCH (08:32)
[2020-12-15 11:00] VITALS: BP 122/72
[2020-12-15 15:00] VITALS: BP 100/62
[2020-12-15] MEDS ORDERED: amiodarone 150mg/dext, iso-os 100 ML IV ONE (15:10)
[2020-12-15] MEDS: amiodarone/D5 360MG/200ML BAG 200 ML IV SCH ×2 (15:48→20:41)
[2020-12-15 18:00] VITALS: BP 96/69
--- NOTE | 2020-12-15 18:28 | NUR ---
Problems reprioritized. Patient report given, questions answered & plan of care reviewed with CHUCKY NOE.
[2020-12-15 20:00] VITALS: BP 101/67
[2020-12-15] MEDS: quetiapine fumarate ER 300mg tablet PO SCH (20:35)
[2020-12-15] MEDS: insulin glargine (Lantus) pen - multi-dose SQ SCH (21:00)
[2020-12-15 22:00] VITALS: BP 96/62
[2020-12-15] MEDS: HYDROcodone/acetaminophen 10/325mg tab PO PRN (22:55)
[2020-12-16] VITALS (8 sets, daily range): BP systolic 84–120; BP diastolic 50–70
[2020-12-16] MEDS: amiodarone/D5 360MG/200ML BAG 200 ML IV SCH (00:03)
[2020-12-16] MEDS ORDERED: normal saline 1000ml 1,000 ML IV ONE (00:15)
--- NOTE | 2020-12-16 06:30 | NUR ---
Patient in room PCU 3028. I have received report from Krys LOCKE and had the opportunity to ask questions and assume patient care.
--- NOTE | 2020-12-16 06:33 | NUR ---
Problems reprioritized. Patient report given, questions answered & plan of care reviewed with CHUCKY Curiel.
[2020-12-16 08:30] LABS: BASOPHILS % (AUTO) 0.7 % (0-1); EOSINOPHILS # (AUTO) 0.2 X10'3 (0-0.9); EOSINOPHILS % (AUTO) 3.2 % (0-6); HEMATOCRIT 25.9 % (35.0-45.0); HEMOGLOBIN 8.8 g/dl (12.0-16.0); LYMPHOCYTES # (AUTO) 1.9 X10'3 (1.1-4.8); LYMPHOCYTES % (AUTO) 28.5 % (21-51); MEAN CORPUSCULAR HEMOGLOBIN 30.6 PG (27.0-31.0); MEAN CORPUSCULAR HGB CONC 34.1 g/dL (33.0-36.5); MEAN CORPUSCULAR VOLUME 89.6 FL (78-98); MEAN PLATELET VOLUME 7.8 FL (7.4-10.4); MONOCYTES # (AUTO) 0.7 X10'3 (0-0.9); MONOCYTES % (AUTO) 9.7 % (2-12); NEUTROPHILS # (AUTO) 3.9 X10'3 (1.8-7.7); NEUTROPHILS % (AUTO) 57.9 % (42-75); PLATELET COUNT 268 X10'3 (140-440); RED BLOOD COUNT 2.89 X10'6 (4.20-5.60); WHITE BLOOD COUNT 6.8 X10'3 (4.5-11.0)
[2020-12-16 08:37] LABS: ALANINE AMINOTRANSFERASE 15 U/L (12-78); ALBUMIN 2.9 G/DL (3.4-5.0); ALBUMIN/GLOBULIN RATIO 0.9 (1.1-1.5); ALKALINE PHOSPHATASE 52 IU/L (46-116); ANION GAP 8 (8-16); ASPARTATE AMINO TRANSFERASE 23 U/L (10-37); BILIRUBIN,TOTAL 0.2 MG/DL (0.1-1.0); BLOOD UREA NITROGEN 10 MG/DL (7-18); BUN/CREATININE RATIO 14.3 (6.6-38.0); CALCIUM 8.1 MG/DL (8.5-10.1); CHLORIDE 106 MMOL/L (99-107); GLUCOSE 132 MG/DL (70-104); POTASSIUM 3.9 MMOL/L (3.5-5.1); SODIUM 143 MMOL/L (135-145); TOTAL CARBON DIOXIDE 28.9 MMOL/L (24-32); TOTAL PROTEIN 6.1 G/DL (6.4-8.2); eGFR 84 ML/MIN
[2020-12-16] MEDS: pantoprazole 40mg Tablet.DR PO SCH (08:39)
[2020-12-16] MEDS: duloxetine 30mg CAPSULE.DR PO SCH (08:39)
[2020-12-16] MEDS: docusate sod 100mg capsule PO SCH ×2 (08:40→22:28)
[2020-12-16] MEDS: amiodarone 200mg tablet PO SCH ×2 (09:58→22:28)
[2020-12-16 10:24] LABS: CHOLESTEROL 158 MG/DL (0-200); HDL CHOLESTEROL 40 MG/DL (35-60); LDL CHOLESTEROL 101 MG/DL (50-100); TRIGLYCERIDES 76 MG/DL (20-135)
--- NOTE | 2020-12-16 11:43 | NUR ---
Paged Dr. Cohen regarding discharge planning. PAGER ID: [phone] MESSAGE: [phone] Shweta Peter. Called Dr. Hampton, he wants patient to stay another night. PCU Aide LOCKE
--- NOTE | 2020-12-16 18:28 | NUR ---
Problems reprioritized. Patient report given, questions answered & plan of care reviewed with Krys LOCKE. Patient stable at transfer of care.
[2020-12-16] MEDS: insulin glargine (Lantus) pen - multi-dose SQ SCH (21:00)
[2020-12-16] MEDS: quetiapine fumarate ER 300mg tablet PO SCH (22:28)
[2020-12-16] MEDS: HYDROcodone/acetaminophen 10/325mg tab PO PRN (22:35)
[2020-12-17 02:00] VITALS: BP 96/55
--- NOTE | 2020-12-17 06:28 | NUR ---
Problems reprioritized. Patient report given, questions answered & plan of care reviewed with CHUCKY Curiel.
--- NOTE | 2020-12-17 06:39 | NUR ---
Patient in room PCU 3028. I have received report from Krys LOCKE and had the opportunity to ask questions and assume patient care.
[2020-12-17 06:54] VITALS: BP 97/61
[2020-12-17] MEDS: pantoprazole 40mg Tablet.DR PO SCH (08:14)
[2020-12-17] MEDS: amiodarone 200mg tablet PO SCH (08:14)
[2020-12-17] MEDS: docusate sod 100mg capsule PO SCH (08:14)
[2020-12-17] MEDS: duloxetine 30mg CAPSULE.DR PO SCH (08:14)
[2020-12-17 11:00] VITALS: BP 113/64
[2020-12-17 15:00] VITALS: BP 114/67
[2020-12-17] MEDS ORDERED: AMIO200T67 PO (16:05)
--- NOTE | 2020-12-17 18:14 | NUR ---
Patient stable for discharge per Dr. Hampton orders. All discharge instructions reviewed with patient and family member and all questions answered. [facility]. PIV discontinued, cannula intact. Telemetry discontinued. Belongings collected and sent with patient. Patient wheeled to personal vehicle via nursing staff.
== END 2020-12-17 18:10 | disposition home or self-care (01) | DRG 121 ==
LOC: PAS IN 05:59 → UNDOADMIN 05:59 → PAS IN 11:34 → ICU 2S 13:21 → PCU 3S 12-11 17:40
PROVIDERS: ADMIT Surgery; ATTEND Surgery
PROC: 0BBC0ZZ Excision of Right Upper Lung Lobe, Open Approach (ICD-10-PCS; 2020-12-09)
PROC: 0W9900Z Drainage of Right Pleural Cavity with Drainage Device, Open Approach (ICD-10-PCS; 2020-12-09)
PROC: 07TM0ZZ Resection of Thymus, Open Approach (ICD-10-PCS; principal; 2020-12-09 08:10)
DX: D49.1 Neoplasm of unspecified behavior of respiratory system (principal); F32.A Depression, unspecified; I48.91 Unspecified atrial fibrillation; Z20.822 Contact with and (suspected) exposure to COVID-19; F41.9 Anxiety disorder, unspecified; K21.9 Gastro-esophageal reflux disease without esophagitis; Z79.899 Other long term (current) drug therapy
CPT/HCPCS: 36415; 36600; 71045; 80047; 80053; 80061; 82803; 82948; 83036; 83735; 84100; 84439; 84443; 85018; 85025; 85610; 85730; 86885; 86900; 86901; 86920; 87635; 93005; 93306; 94760; 97110; 97116; 97161; 97530; 97535; A4215; A4618; A6258; A6449; A7000; A7048; C1758; C9250; G0378; J0131; J0690; J1100; J1644; J1815; J1885; J2001; J2175; J2250; J2270; J2405; J2704; J2710; J3010; J3480; J3490; J7030; J7040; J7060; J7120; P9045

== ENCOUNTER → 2023-07-26 | Outpatient (CLI) | payer MEDICAID ==
[~2023-07-26] MED LIST changes: +AMIO200T67 PO; -QUET300T72 PO; +QUET300T91 PO; -ceFAZolin 2gm in dextrose, iso 50 ML IV ONE; -famotidine 20mg tablet PO ONE; -ringers solution, lacted 1,000 ML IV SCH
== END | disposition home or self-care (01) ==
LOC: RAD 07:52
PROVIDERS: ATTEND Family Medicine
DX: R76.8 Other specified abnormal immunological findings in serum (principal)
CPT/HCPCS: 76700